=== PATIENT | female | born 1950 | race Hispanic/Latino ===

== ENCOUNTER 2017-12-12 09:34 | Emergency (ER) | payer MEDICARE ==
[~2017-12-12 09:34] MED LIST: AMLO10TA2 PO; CLOP75TA32 PO; FURO40TA5 PO; GLIP1TAB6 PO; INHALER IH; LISI40TA4 PO; METO50TA18 PO; SIMV40TA5 PO; SITA100T12 PO
[2017-12-12] MEDS ORDERED: ACETAMINOPHEN 325 MG TAB ONE (10:38)
[2018-04-09] MEDS ORDERED: PANT40TA25 PO (23:19)
== END 2017-12-12 11:47 | disposition home or self-care (01) ==
LOC: EDH 09:34
DX: S82.854A Nondisplaced trimalleolar fracture of right lower leg, initial encounter for closed fracture (principal); E78.5 Hyperlipidemia, unspecified; I10 Essential (primary) hypertension; E11.9 Type 2 diabetes mellitus without complications; Z88.6 Allergy status to analgesic agent; W10.8XXA Fall (on) (from) other stairs and steps, initial encounter; Y93.89 Activity, other specified; Y92.098 Other place in other non-institutional residence as the place of occurrence of the external cause; Y99.8 Other external cause status
CPT/HCPCS: 29515; 73610

== ENCOUNTER 2017-12-20 12:45 | Inpatient (IN) | payer MEDICARE ==
[~2017-12-20] VITALS: Ht 162.6 cm; Wt 59.0 kg
[~2017-12-20 12:45] MED LIST changes: -FURO40TA5 PO
[2017-12-20 14:23] VITALS: BP 149/64
[2017-12-20] MEDS ORDERED: ASPI-555 PO (14:48)
[2017-12-20 14:54] LABS: APPEARANCE,URINE Clear (CLEAR); BILIRUBIN,URINE Negative (NEGATIVE); COLOR,URINE Yellow (YELLOW); GLUCOSE, URINE (UA) Negative (NEGATIVE); KETONES,URINE Negative (NEGATIVE); LEUKOCYTE ESTERASE ,URINE Moderate (NEGATIVE); NITRATE,URINE Positive (NEGATIVE); OCCULT BLOOD,URINE Trace (NEGATIVE); PROTEIN,URINE POS 2+ (NEGATIVE); UROBILINOGEN,URINE 0.2 mg/dL (0.2-1.0)
[2017-12-20 15:01] LABS: BACTERIA,URINE Many /HPF (None Seen); RBC,URINE None Seen /HPF (0-1)
[2017-12-21] VITALS (24 sets, daily range): BP systolic 148–192; BP diastolic 58–86
[2017-12-21] MEDS ORDERED: GENTAMICIN SULFATE 80 MG/2 ML VIAL IM SCH (06:30)
[2017-12-21] MEDS ORDERED: SODIUM CHLORIDE 0.9% 1000ML 1,000 ML IV ONE (06:55)
[2017-12-21] MEDS: CEFAZOLIN SODIUM 1 GM VIAL IVP SCH ×4 (07:30→21:19)
[2017-12-21] MEDS ORDERED: GENTAMICIN SULFATE 80 MG/2 ML VIAL ONE (07:30)
[2017-12-21] MEDS ORDERED: MIDAZOLAM HCL 1 MG/ML 2ML VIAL ONE (07:37)
[2017-12-21] MEDS ORDERED: FENTANYL CITRATE PF 50 MCG/1 ML 5ML AMP IV ONE (09:02)
[2017-12-21] MEDS ORDERED: ONDANSETRON HCL MDV 20ML 2 MG/ML VIAL ONE (10:10)
[2017-12-21 10:45] LABS: HEMATOCRIT 28.3 % (36-48)
[2017-12-21] MEDS ORDERED: MORPHINE SULFATE 10 MG/ML 1ML SYG IM PRN ×2 (11:30→11:45)
[2017-12-21] MEDS ORDERED: PROMETHAZINE HCL 25 MG/ML 1ML AMPULE IM PRN (11:30)
[2017-12-21] MEDS ORDERED: BISACODYL 10 MG SUPP.RECT RC PRN (11:30)
[2017-12-21] MEDS ORDERED: LACTATED RINGERS 1000ML 1,000 ML IV SCH (11:30)
[2017-12-21] MEDS ORDERED: MAGNESIUM HYDROXIDE 30 ML/UDCUP PO PRN (11:30)
[2017-12-21] MEDS ORDERED: HYDROCODONE/ACETAMINOPHEN 5/325 MG TAB PO PRN (11:45)
[2017-12-21] MEDS ORDERED: ONDANSETRON HCL 4 MG/2 ML VIAL IVP PRN (12:00)
[2017-12-21] MEDS: MORPHINE SULFATE 2 MG/ML 1ML SYG IVP PRN ×2 (12:04→17:29)
[2017-12-21] MEDS ORDERED: GENTAMICIN 80 MG/NS 100 ML PB 100 ML IV SCH (16:00)
[2017-12-21 18:23] LABS: HEMATOCRIT 27.1 % (36-48)
[2017-12-21] MEDS ORDERED: ONDANSETRON HCL MDV 20ML 2 MG/ML VIAL IVP PRN (19:30)
[2017-12-21] MEDS ORDERED: KETOROLAC TROMETHAMINE 30MG/ML ONE (19:44)
[2017-12-21] MEDS ORDERED: DEXTROSE 50%-WATER 50 ML DISP.SYRIN IV PRN (20:15)
[2017-12-21] MEDS ORDERED: GLUCAGON 1MG KIT 1 MG ML IM PRN (20:15)
[2017-12-21] MEDS: INSULIN R PO SS1 SQ SCH (21:16)
[2017-12-22] VITALS: BP 145/70
[2017-12-22 00:23] LABS: HEMATOCRIT 26.5 % (36-48)
[2017-12-22] MEDS: KETOROLAC TROMETHAMINE 30MG/ML IV PRN ×4 (02:03→23:31)
[2017-12-22 04:00] VITALS: BP 149/63
[2017-12-22] MEDS: CEFAZOLIN SODIUM 1 GM VIAL IVP SCH (05:46)
[2017-12-22 06:36] LABS: MAGNESIUM 1.5 mg/dL (1.80-2.40); POTASSIUM 4.1 mmol/L (3.5-5.1)
[2017-12-22] MEDS: INSULIN R PO SS1 SQ SCH ×4 (07:05→20:50)
[2017-12-22] MEDS ORDERED: METFORMIN HCL 500 MG TABLET PO SCH (07:30)
[2017-12-22 08:26] VITALS: BP 164/65
[2017-12-22] MEDS: GLIPIZIDE 5 MG TABLET PO SCH ×2 (08:49→17:09)
[2017-12-22] MEDS: ASPIRIN 81 MG EC TAB PO SCH (08:49)
[2017-12-22] MEDS: LISINOPRIL 40 MG TABLET PO SCH (08:49)
[2017-12-22] MEDS: CLOPIDOGREL BISULFATE 75 MG TAB PO SCH (08:50)
[2017-12-22] MEDS: AMLODIPINE BESYLATE 5 MG TAB PO SCH ×2 (08:50→09:04)
[2017-12-22] MEDS: LINAGLIPTIN 5 MG TABLET PO SCH (08:50)
[2017-12-22] MEDS: RIVAROXABAN 10 MG TABLET PO SCH (08:50)
[2017-12-22] MEDS: METOPROLOL TARTRATE 50 MG TAB PO SCH ×2 (08:50→20:44)
[2017-12-22] MEDS: METFORMIN HCL 500 MG TABLET PO SCH ×2 (08:50→17:09)
[2017-12-22 11:07] LABS: HEMATOCRIT 30.7 % (36-48); MEAN CORPUSCULAR HEMOGLOBIN 27.5 pg (27.0-33.0); MEAN CORPUSCULAR HGB CONC 34.6 g/dL (32.0-36.0); MEAN CORPUSCULAR VOLUME 79.6 fL (79-99); RED BLOOD CELL COUNT(AUTO) 3.86 MIL/uL (4.00-5.50); RED CELL DISTRIBUTION WIDTH 14.1 % (11.0-15.5); WHITE BLOOD COUNT (AUTO) 10.3 K/uL (4.8-10.8)
[2017-12-22 11:08] LABS: BASOPHILS % (AUTO) 0.4 % (0.0-5.0); EOSINOPHILS % (AUTO) 0.9 % (0.0-8.0); LYMPHOCYTES % (AUTO) 14.8 % (21.0-51.0); MONOCYTES % (AUTO) 12.4 % (3.0-13.0); NEUTROPHILS % (AUTO) 71.5 % (40.0-77.0); PLATELET COUNT (AUTO) 246 K/uL (130-400)
[2017-12-22 12:00] VITALS: BP 140/62
[2017-12-22 16:00] VITALS: BP 163/72
[2017-12-22 19:52] VITALS: BP 154/60
[2017-12-22] MEDS ORDERED: ATORVASTATIN CALCIUM 20 MG TABLET PO SCH (21:00)
[2017-12-23 00:29] VITALS: BP 151/67
[2017-12-23 04:26] VITALS: BP 164/64
[2017-12-23] MEDS: INSULIN R PO SS1 SQ SCH ×3 (05:57→16:17)
[2017-12-23] MEDS ORDERED: CEFTRIAXONE 1GM/D5W 50ML 50 ML IV SCH (07:30)
[2017-12-23] MEDS ORDERED: MAGNESIUM 4GM PREMIX 100ML 100 ML IV SCH (07:30)
[2017-12-23 07:45] VITALS: BP 157/62
[2017-12-23] MEDS ORDERED: CEFTRIAXONE SODIUM 1 GM IVP SCH (08:00)
[2017-12-23] MEDS: KETOROLAC TROMETHAMINE 30MG/ML IV PRN (10:12)
[2017-12-23] MEDS: METFORMIN HCL 500 MG TABLET PO SCH ×2 (10:20→16:24)
[2017-12-23] MEDS: GLIPIZIDE 5 MG TABLET PO SCH ×2 (10:20→16:24)
[2017-12-23] MEDS: ASPIRIN 81 MG EC TAB PO SCH (10:21)
[2017-12-23] MEDS: CLOPIDOGREL BISULFATE 75 MG TAB PO SCH (10:21)
[2017-12-23] MEDS: LINAGLIPTIN 5 MG TABLET PO SCH (10:21)
[2017-12-23] MEDS: RIVAROXABAN 10 MG TABLET PO SCH (10:21)
[2017-12-23] MEDS: METOPROLOL TARTRATE 50 MG TAB PO SCH (10:22)
[2017-12-23] MEDS: LISINOPRIL 40 MG TABLET PO SCH (10:37)
[2017-12-23] MEDS: AMLODIPINE BESYLATE 5 MG TAB PO SCH (10:37)
[2017-12-23 12:00] VITALS: BP 156/58
[2018-04-09] MEDS ORDERED: PANT40TA25 PO (23:19)
== END 2017-12-23 17:34 | disposition home or self-care (01) | DRG 493 ==
LOC: EDSTATUS 12:45 → DAHIP 12-21 06:38 → 4AH 12-21 10:40
PROC: 0QSG04Z Reposition Right Tibia with Internal Fixation Device, Open Approach (ICD-10-PCS; 2017-12-21)
PROC: 30233N1 Transfusion of Nonautologous Red Blood Cells into Peripheral Vein, Percutaneous Approach (ICD-10-PCS; 2017-12-21)
PROC: 0QSJ04Z Reposition Right Fibula with Internal Fixation Device, Open Approach (ICD-10-PCS; principal; 2017-12-21 07:30)
DX: S82.851A Displaced trimalleolar fracture of right lower leg, initial encounter for closed fracture (principal); N39.0 Urinary tract infection, site not specified; E83.42 Hypomagnesemia; I11.9 Hypertensive heart disease without heart failure; I65.23 Occlusion and stenosis of bilateral carotid arteries; D63.8 Anemia in other chronic diseases classified elsewhere; E11.9 Type 2 diabetes mellitus without complications; E78.00 Pure hypercholesterolemia, unspecified; S93.01XA Subluxation of right ankle joint, initial encounter; H91.90 Unspecified hearing loss, unspecified ear; I25.10 Atherosclerotic heart disease of native coronary artery without angina pectoris; J45.909 Unspecified asthma, uncomplicated; Z79.01 Long term (current) use of anticoagulants
CPT/HCPCS: 36415; 36430; 73610; 76000; 80048; 81001; 82948; 83735; 85014; 85018; 85025; 86850; 86900; 86901; 86922; 94760; 97039; A4218; A4606; J0690; J0696; J1580; J1815; J1885; J2250; J3010; J3475; J7030; J7120; P9016

== ENCOUNTER 2018-02-02 10:00 | Inpatient (IN) | payer MEDICARE ==
[~2018-02-02] VITALS: Ht 162.6 cm; Wt 59.0 kg
[~2018-02-02 10:00] MED LIST changes: +ASPI-555 PO; -INHALER IH
[2018-02-05 12:47] VITALS: BP 155/66
[2018-02-05 13:42] LABS: BASOPHILS % (AUTO) 0.9 % (0.0-5.0); HEMATOCRIT 35.5 % (36-48); LYMPHOCYTES % (AUTO) 24.1 % (21.0-51.0); MEAN CORPUSCULAR HEMOGLOBIN 26.3 pg (27.0-33.0); MEAN CORPUSCULAR HGB CONC 33.5 g/dL (32.0-36.0); MEAN CORPUSCULAR VOLUME 78.5 fL (79-99); MONOCYTES % (AUTO) 7.1 % (3.0-13.0); NEUTROPHILS % (AUTO) 62.9 % (40.0-77.0); PLATELET COUNT (AUTO) 245 K/uL (130-400); RED BLOOD CELL COUNT(AUTO) 4.52 MIL/uL (4.00-5.50); WHITE BLOOD COUNT (AUTO) 8.4 K/uL (4.8-10.8)
[2018-02-05 13:59] LABS: CREATININE 0.9 mg/dL (0.5-1.5); POTASSIUM 4.9 mmol/L (3.5-5.1)
[2018-02-05] MEDS ORDERED: CEFAZOLIN SODIUM 1 GM VIAL IVP SCH (15:30)
[2018-02-07] VITALS (18 sets, daily range): BP systolic 100–159; BP diastolic 34–82
[2018-02-07] MEDS ORDERED: SODIUM CHLORIDE 0.9% 1000ML 1,000 ML IV ONE (06:36)
[2018-02-07] MEDS ORDERED: GLYCOPYRROLATE 0.2 MG/ML 5 ML VIAL ONE (07:07)
[2018-02-07] MEDS ORDERED: LIDOCAINE HCL MPF 1% 5ML VIAL ONE (07:07)
[2018-02-07] MEDS ORDERED: ESMOLOL HCL 10 MG/ML 10 ML VIAL ONE (07:07)
[2018-02-07] MEDS ORDERED: NEOSTIGMINE 5MG/5ML SYR IV ONE (07:07)
[2018-02-07] MEDS ORDERED: ROCURONIUM BROMIDE 10MG/1ML 5ML VL ONE ×3 (07:07→07:10)
[2018-02-07] MEDS ORDERED: LIDOCAINE PF 2% 5ML ABBOJECT ONE (07:07)
[2018-02-07] MEDS ORDERED: ONDANSETRON HCL MDV 20ML 2 MG/ML VIAL ONE (07:07)
[2018-02-07] MEDS ORDERED: PHENYLEPHRINE HCL 10 MG/ML 1ML VIAL IV ONE (07:07)
[2018-02-07] MEDS ORDERED: MIDAZOLAM HCL 1 MG/ML 2ML VIAL ONE (07:07)
[2018-02-07] MEDS ORDERED: LIDOCAINE HCL 2% JELLY 5 ML ONE (07:07)
[2018-02-07] MEDS ORDERED: EPHEDRINE SULFATE 50 MG/ML AMPULE ONE (07:07)
[2018-02-07] MEDS ORDERED: PROPOFOL 10 MG/ML 20ML VIAL IV ONE ×2 (07:08→08:36)
[2018-02-07] MEDS ORDERED: FENTANYL CITRATE PF 50 MCG/1 ML 2ML VIAL ONE ×2 (07:08→08:31)
[2018-02-07] MEDS ORDERED: SODIUM CHLORIDE 0.9% 10 ML VIAL ONE (07:09)
[2018-02-07] MEDS ORDERED: HEPARIN SODIUM 1000UNIT/ML 10ML VIAL ONE ×2 (07:09→07:10)
[2018-02-07] MEDS ORDERED: ISOVUE-300 100 ML VIAL IV ONE (07:10)
[2018-02-07] MEDS ORDERED: NITROGLYCERIN 5 MG/ML 10 ML VIAL IV ONE (07:10)
[2018-02-07 07:16] LABS: INR 0.93 (0.85-1.15); PARTIAL THROMBOPLASTIN TIME 26.4 SEC (26.3-35.5); PROTHROMBIN TIME 9.8 SEC (9.6-11.6)
[2018-02-07] MEDS ORDERED: CEFAZOLIN SODIUM 1 GM VIAL ONE (07:19)
[2018-02-07] MEDS ORDERED: LIDOCAINE HCL 1% 20 ML VIAL ONE (07:32)
[2018-02-07] MEDS ORDERED: BACITRACIN 50,000 UNIT VIAL ONE (07:32)
[2018-02-07] MEDS ORDERED: DEXTROSE 50%-WATER 50 ML DISP.SYRIN IV PRN (09:30)
[2018-02-07] MEDS ORDERED: GLUCAGON 1MG KIT 1 MG ML IM PRN (09:30)
[2018-02-07] MEDS ORDERED: HYDRALAZINE HCL 20 MG/ML VIAL ONE (09:42)
[2018-02-07] MEDS: SODIUM CHLORIDE 0.9% 1000ML 1,000 ML IV SCH ×2 (10:27→21:43)
[2018-02-07] MEDS: NITROGLYCERIN 1GM/1 INCH PACKET TD SCH ×2 (10:27→18:22)
[2018-02-07] MEDS: HYDRALAZINE HCL 20 MG/ML VIAL IV PRN (10:39)
[2018-02-07] MEDS: INSULIN HUMULIN R 100 UNIT/ML 3ML SQ SCH ×3 (12:38→21:00)
[2018-02-07] MEDS: MORPHINE SULFATE 4 MG/1ML SYG IVP PRN ×2 (12:39→17:10)
[2018-02-07] MEDS: TRAMADOL /APAP 37.5MG/325MG TAB PO PRN ×2 (14:29→23:30)
[2018-02-07] MEDS ORDERED: ONDANSETRON HCL 4 MG/2 ML VIAL ONE (19:17)
[2018-02-07] MEDS: METOPROLOL TARTRATE 50 MG TAB PO SCH (20:37)
[2018-02-07] MEDS ORDERED: ATORVASTATIN CALCIUM 20 MG TABLET PO SCH (21:00)
[2018-02-08] VITALS (12 sets, daily range): BP systolic 111–176; BP diastolic 38–91
[2018-02-08] MEDS: NITROGLYCERIN 1GM/1 INCH PACKET TD SCH ×2 (02:11→10:00)
[2018-02-08] MEDS: HYDRALAZINE HCL 20 MG/ML VIAL IV PRN (02:12)
[2018-02-08 03:56] LABS: HEMATOCRIT 27.4 % (36-48); MEAN CORPUSCULAR HEMOGLOBIN 26.9 pg (27.0-33.0); MEAN CORPUSCULAR VOLUME 79.3 fL (79-99); PLATELET COUNT (AUTO) 196 K/uL (130-400); RED BLOOD CELL COUNT(AUTO) 3.46 MIL/uL (4.00-5.50); RED CELL DISTRIBUTION WIDTH 15.1 % (11.0-15.5); WHITE BLOOD COUNT (AUTO) 9.5 K/uL (4.8-10.8)
[2018-02-08 04:08] LABS: CREATININE 0.9 mg/dL (0.5-1.5); POTASSIUM 3.9 mmol/L (3.5-5.1)
[2018-02-08] MEDS: INSULIN HUMULIN R 100 UNIT/ML 3ML SQ SCH ×2 (05:46→11:49)
[2018-02-08] MEDS ORDERED: ONDANSETRON HCL 4 MG/2 ML VIAL ONE (06:29)
[2018-02-08] MEDS ORDERED: ONDANSETRON HCL MDV 20ML 2 MG/ML VIAL IVP PRN (06:30)
[2018-02-08] MEDS: METOPROLOL TARTRATE 50 MG TAB PO SCH (08:59)
[2018-02-08] MEDS ORDERED: AMLODIPINE BESYLATE 5 MG TAB PO SCH (09:00)
[2018-02-08] MEDS ORDERED: ASPIRIN 81 MG EC TAB PO SCH (09:00)
[2018-02-08] MEDS ORDERED: LISINOPRIL 40 MG TABLET PO SCH (09:00)
[2018-02-08] MEDS ORDERED: CLOPIDOGREL BISULFATE 75 MG TAB PO SCH (09:00)
[2018-02-08] MEDS ORDERED: IBUP-2070 PO (12:42)
[2018-02-08] MEDS ORDERED: ACET-2247 PO (12:44)
[2018-04-09] MEDS ORDERED: PANT40TA25 PO (23:19)
== END 2018-02-08 14:22 | disposition home or self-care (01) | DRG 39 ==
LOC: EDSTATUS 02-05 11:00 → DAHIP 02-07 06:13 → 2CV 02-07 10:11 → 2CH 02-07 16:57
PROVIDERS: ADMIT Surgery; ATTEND Surgery
PROC: 037J0DZ Dilation of Left Common Carotid Artery with Intraluminal Device, Open Approach (ICD-10-PCS; principal; 2018-02-07 07:30)
DX: I65.23 Occlusion and stenosis of bilateral carotid arteries (principal); I11.0 Hypertensive heart disease with heart failure; E11.9 Type 2 diabetes mellitus without complications; E78.00 Pure hypercholesterolemia, unspecified; Z88.8 Allergy status to other drugs, medicaments and biological substances; Z82.49 Family history of ischemic heart disease and other diseases of the circulatory system
CPT/HCPCS: 36415; 37215; 80048; 82948; 85025; 85027; 85347; 85610; 85730; 93005; 93880; A4218; C1725; C1894; J0360; J0690; J1644; J1815; J2001; J2250; J2270; J2370; J2405; J2704; J2710; J3010; J3490; J7030; J7040; Q9967

== ENCOUNTER 2018-02-21 06:39 | Emergency (ER) | payer MEDICARE ==
[~2018-02-21 06:39] MED LIST changes: +ACET-2247 PO; +IBUP-2070 PO
[2018-02-21 07:17] LABS: BASOPHILS % (AUTO) 0.5 % (0.0-5.0); EOSINOPHILS % (AUTO) 1.1 % (0.0-8.0); HEMATOCRIT 33.7 % (36-48); LYMPHOCYTES % (AUTO) 8.6 % (21.0-51.0); MEAN CORPUSCULAR HEMOGLOBIN 26.1 pg (27.0-33.0); MEAN CORPUSCULAR HGB CONC 32.8 g/dL (32.0-36.0); MEAN CORPUSCULAR VOLUME 79.7 fL (79-99); MONOCYTES % (AUTO) 0.3 % (3.0-13.0); NEUTROPHILS % (AUTO) 89.5 % (40.0-77.0); PLATELET COUNT (AUTO) 280 K/uL (130-400); RED BLOOD CELL COUNT(AUTO) 4.23 MIL/uL (4.00-5.50); RED CELL DISTRIBUTION WIDTH 15.2 % (11.0-15.5); WHITE BLOOD COUNT (AUTO) 6.5 K/uL (4.8-10.8)
[2018-02-21 07:25] LABS: CREATININE 1.3 mg/dL (0.5-1.5); POTASSIUM 4.2 mmol/L (3.5-5.1)
[2018-02-21 07:31] LABS: ALBUMIN 3.4 g/dL (3.5-5.0); BILIRUBIN,TOTAL 0.7 mg/dL (0.2-1.0); TOTAL PROTEIN, SERUM 7.5 g/dL (6.0-8.3)
[2018-02-21 07:35] LABS: APPEARANCE,URINE TURBID (CLEAR); BILIRUBIN,URINE NEGATIVE (NEGATIVE); COLOR,URINE YELLOW (YELLOW); GLUCOSE, URINE (UA) 100 mg/dL (NEGATIVE); KETONES,URINE 15 mg/dL (NEGATIVE); LEUKOCYTE ESTERASE ,URINE SMALL (NEGATIVE); NITRATE,URINE POSITIVE (NEGATIVE); OCCULT BLOOD,URINE LARGE (NEGATIVE); PROTEIN,URINE 100 (NEGATIVE)
[2018-02-21] MEDS ORDERED: KETOROLAC TROMETHAMINE 30MG/ML ONE (07:37)
[2018-02-21] MEDS ORDERED: ONDANSETRON HCL MDV 20ML 2 MG/ML VIAL ONE (07:37)
[2018-02-21] MEDS ORDERED: SODIUM CHLORIDE 0.9% 1000ML 1,000 ML IV ONE (07:37)
[2018-02-21 07:47] LABS: BACTERIA,URINE Many /HPF (None Seen); RBC,URINE TNTC /HPF (0-1); SQUAMOUS EPITHELIAL CELL,UR Rare /HPF (0-2); WBC,URINE 26-50 /HPF (0-1)
[2018-02-21] MEDS ORDERED: CEFTRIAXONE SODIUM 1 GM ONE (09:13)
[2018-02-21] MEDS ORDERED: SODIUM CHLORIDE 0.9% 100 ML IV ONE (09:14)
[2018-04-09] MEDS ORDERED: PANT40TA25 PO (23:19)
== END 2018-02-21 12:24 | disposition home or self-care (01) ==
LOC: EDH 06:39
DX: N39.0 Urinary tract infection, site not specified (principal); E11.9 Type 2 diabetes mellitus without complications; E78.5 Hyperlipidemia, unspecified; I10 Essential (primary) hypertension; Z88.5 Allergy status to narcotic agent
CPT/HCPCS: 36415; 74176; 80053; 81001; 85025; 87088; 87186; 96361; 96374; 96375; 99285; J0696; J1885; J7030

== ENCOUNTER 2018-02-23 08:14 | Inpatient (IN) | payer MEDICARE ==
[~2018-02-23] VITALS: Ht 162.6 cm; Wt 55.4 kg
[2018-02-23] MEDS ORDERED: SODIUM CHLORIDE 0.9% 1000ML 1,000 ML IV ONE ×2 (08:38→17:06)
[2018-02-23] MEDS ORDERED: ONDANSETRON HCL MDV 20ML 2 MG/ML VIAL ONE ×3 (08:38→21:52)
[2018-02-23 08:46] LABS: BASOPHILS % (AUTO) 0.2 % (0.0-5.0); EOSINOPHILS % (AUTO) 0.2 % (0.0-8.0); HEMATOCRIT 31.6 % (36-48); MEAN CORPUSCULAR HEMOGLOBIN 25.6 pg (27.0-33.0); MEAN CORPUSCULAR HGB CONC 32.8 g/dL (32.0-36.0); MEAN CORPUSCULAR VOLUME 78.2 fL (79-99); NEUTROPHILS % (AUTO) 90.6 % (40.0-77.0); PLATELET COUNT (AUTO) 252 K/uL (130-400); RED BLOOD CELL COUNT(AUTO) 4.05 MIL/uL (4.00-5.50); RED CELL DISTRIBUTION WIDTH 15.6 % (11.0-15.5); WHITE BLOOD COUNT (AUTO) 17.1 K/uL (4.8-10.8)
[2018-02-23 08:58] LABS: APPEARANCE,URINE Cloudy (CLEAR); BILIRUBIN,URINE Negative (NEGATIVE); COLOR,URINE Yellow (YELLOW); GLUCOSE, URINE (UA) 500 mg/dL (NEGATIVE); KETONES,URINE >=80 mg/dL (NEGATIVE); LEUKOCYTE ESTERASE ,URINE Negative (NEGATIVE); NITRATE,URINE Negative (NEGATIVE); OCCULT BLOOD,URINE Moderate (NEGATIVE); PROTEIN,URINE POS 2+ (NEGATIVE); UROBILINOGEN,URINE 0.2 mg/dL (0.2-1.0)
[2018-02-23 09:02] LABS: CREATININE 1.6 mg/dL (0.5-1.5); POTASSIUM 3.3 mmol/L (3.5-5.1)
[2018-02-23 09:05] LABS: AMORPHOUS SEDIMENT,UR Moderate /LPF (None Seen); BACTERIA,URINE Rare /HPF (None Seen); SQUAMOUS EPITHELIAL CELL,UR Rare /HPF (0-2); WBC,URINE 0-1 /HPF (0-1)
[2018-02-23 09:08] LABS: ALBUMIN 3.3 g/dL (3.5-5.0); BILIRUBIN,DIRECT 0.2 mg/dL (0.0-0.3); BILIRUBIN,TOTAL 0.8 mg/dL (0.2-1.0); TOTAL PROTEIN, SERUM 7.7 g/dL (6.0-8.3)
[2018-02-23] MEDS ORDERED: LABETALOL HCL 5 MG/ML 20ML VIAL IV ONE ×3 (09:20→16:42)
[2018-02-23] MEDS ORDERED: HYDROMORPHONE HCL 0.5 MG/0.5 ML ML IVP PRN (16:30)
[2018-02-23] MEDS ORDERED: VANCOMYCIN PROTOCOL PER PHARMACY IV SCH (16:30)
[2018-02-23] MEDS: SODIUM CHLORIDE 0.9% 1000ML 1,000 ML IV SCH (16:30)
[2018-02-23] MEDS ORDERED: ONDANSETRON HCL 4 MG/2 ML VIAL IVP PRN (16:30)
[2018-02-23] MEDS: VANCOMYCIN 1GM+NS 250ML 250 ML IV SCH (17:00)
[2018-02-23] MEDS: FAMOTIDINE/PF 20 MG/2 ML VIAL IV SCH (17:00)
[2018-02-23] MEDS ORDERED: FAMOTIDINE/PF 20 MG/2 ML VIAL IV ONE (17:06)
[2018-02-23] MEDS ORDERED: ZOSYN 3.375GM+NS 50ML 50 ML IV ONE (17:06)
[2018-02-23] MEDS ORDERED: HYDROMORPHONE 1 MG/1 ML AMP ONE (18:40)
[2018-02-23] MEDS: ZOSYN 3.375GM+NS 50ML 50 ML IV SCH (21:00)
[2018-02-23] MEDS ORDERED: VANCOMYCIN 1GM+NS 250ML 250 ML IV ONE (21:44)
[2018-02-23 22:15] VITALS: BP 204/68
[2018-02-23] MEDS ORDERED: POTASSIUM CHLORIDE 20MEQ/100ML 100 ML IV PRN (23:45)
[2018-02-23] MEDS ORDERED: GLUCAGON 1MG KIT 1 MG ML IM PRN (23:45)
[2018-02-23] MEDS ORDERED: LIDOCAINE HCL-MPF 1% 2ML VIAL IVP PRN (23:45)
[2018-02-23] MEDS ORDERED: POTASSIUM CHLORIDE 20 MEQ ERTAB PO PRN ×2 (23:45)
[2018-02-23] MEDS ORDERED: POTASSIUM CHLORIDE 10% ELIXIR 20 MEQ/15 ML UDCUP PO PRN ×2 (23:45)
[2018-02-23] MEDS ORDERED: DEXTROSE 50%-WATER 50 ML DISP.SYRIN IV PRN (23:45)
[2018-02-23 23:47] VITALS: BP 202/75
[2018-02-24] VITALS (16 sets, daily range): BP systolic 145–213; BP diastolic 59–98
[2018-02-24] MEDS: SODIUM CHLORIDE 0.9% 1000ML 1,000 ML IV SCH ×4 (00:11→22:31)
[2018-02-24] MEDS: LABETALOL HCL 5 MG/ML 20ML VIAL IV PRN ×3 (00:18→14:53)
[2018-02-24] MEDS ORDERED: CEFD300C3 PO (01:33)
[2018-02-24] MEDS ORDERED: FURO40TA5 PO (01:33)
[2018-02-24] MEDS ORDERED: NITR100C PO (01:33)
[2018-02-24] MEDS ORDERED: ONDA4TAB10 PO (01:33)
[2018-02-24] MEDS ORDERED: TRAM50TA4 PO (01:33)
[2018-02-24] MEDS ORDERED: BENZ200C53 PO (01:33)
[2018-02-24] MEDS ORDERED: ONDANSETRON ODT 4 MG TAB PO PRN (01:45)
[2018-02-24] MEDS ORDERED: TRAMADOL HCL 50 MG TABLET PO PRN (01:45)
[2018-02-24] MEDS: HYDROMORPHONE 1 MG/1 ML AMP IVP PRN ×2 (03:14→09:14)
[2018-02-24] MEDS: ZOSYN 3.375GM+NS 50ML 50 ML IV SCH ×3 (05:30→21:01)
[2018-02-24] MEDS: GLIPIZIDE 5 MG TABLET PO SCH ×2 (07:30→17:48)
[2018-02-24] MEDS: METFORMIN HCL 500 MG TABLET PO SCH ×2 (07:30→17:48)
[2018-02-24] MEDS ORDERED: PNEUMOCOCCAL VACCINE POLYVALENT 0.5 ML/VIAL [PPV] IM SCH (08:00)
[2018-02-24 08:29] LABS: HEMATOCRIT 27.3 % (36-48); MEAN CORPUSCULAR HEMOGLOBIN 26.5 pg (27.0-33.0); MEAN CORPUSCULAR HGB CONC 33.3 g/dL (32.0-36.0); MEAN CORPUSCULAR VOLUME 79.6 fL (79-99); PLATELET COUNT (AUTO) 219 K/uL (130-400); RED BLOOD CELL COUNT(AUTO) 3.43 MIL/uL (4.00-5.50); RED CELL DISTRIBUTION WIDTH 15.7 % (11.0-15.5)
[2018-02-24] MEDS: LINAGLIPTIN 5 MG TABLET PO SCH (09:00)
[2018-02-24] MEDS: AMLODIPINE BESYLATE 5 MG TAB PO SCH (09:00)
[2018-02-24] MEDS ORDERED: FUROSEMIDE 40 MG TABLET PO SCH (09:00)
[2018-02-24] MEDS: BENZONATATE 100 MG CAPSULE PO SCH ×3 (09:00→21:01)
[2018-02-24] MEDS ORDERED: METOPROLOL TARTRATE 50 MG TAB PO SCH (09:00)
[2018-02-24] MEDS ORDERED: CLOPIDOGREL BISULFATE 75 MG TAB PO SCH (09:00)
[2018-02-24] MEDS: NITROFURANTOIN MONOHYD/M-CRYST 100 MG CAPSULE PO SCH ×2 (09:00→21:01)
[2018-02-24 09:03] LABS: ALBUMIN 2.6 g/dL (3.5-5.0); BILIRUBIN,TOTAL 0.5 mg/dL (0.2-1.0); CREATININE 1.3 mg/dL (0.5-1.5); MAGNESIUM 1.5 mg/dL (1.80-2.40); POTASSIUM 3.5 mmol/L (3.5-5.1); TOTAL PROTEIN, SERUM 6.5 g/dL (6.0-8.3)
[2018-02-24] MEDS: LISINOPRIL 40 MG TABLET PO SCH (10:39)
[2018-02-24] MEDS ORDERED: CLONIDINE 0.3 MG/ 24 HR PATCH TD SCH (11:00)
[2018-02-24] MEDS ORDERED: LABETALOL 20 MG/4 ML DISP.SYRIN IV PRN (11:00)
[2018-02-24] MEDS: INSULIN HUMULIN R 100 UNIT/ML 3ML SQ SCH ×4 (11:18→21:00)
[2018-02-24] MEDS: CEFDINIR 250MG/5ML 60ML BOTTLE PO SCH ×2 (11:19→21:01)
[2018-02-24 11:34] LABS: CREATINE KINASE MB 0.9 ng/mL (0.5-3.6); TROPONIN I 0.06 ng/mL (0.00-0.06)
[2018-02-24] MEDS: FUROSEMIDE 10 MG/ML 2ML VIAL IV SCH (17:43)
[2018-02-24] MEDS: ONDANSETRON HCL MDV 20ML 2 MG/ML VIAL IVP PRN (17:47)
[2018-02-24] MEDS: VANCOMYCIN 1GM+NS 250ML 250 ML IV SCH (17:47)
[2018-02-24] MEDS: FAMOTIDINE/PF 20 MG/2 ML VIAL IV SCH (17:47)
[2018-02-24] MEDS: LABETALOL HCL 100 MG TABLET PO SCH ×2 (17:48→21:02)
[2018-02-24 18:11] LABS: CREATINE KINASE MB 0.9 ng/mL (0.5-3.6); TROPONIN I 0.08 ng/mL (0.00-0.06)
[2018-02-24] MEDS: ATORVASTATIN CALCIUM 20 MG TABLET PO SCH (21:01)
[2018-02-24 23:31] LABS: TROPONIN I 0.08 ng/mL (0.00-0.06)
[2018-02-25] VITALS (10 sets, daily range): BP systolic 125–211; BP diastolic 66–102
[2018-02-25] MEDS: ONDANSETRON HCL MDV 20ML 2 MG/ML VIAL IVP PRN ×2 (00:03→05:58)
[2018-02-25] MEDS: LABETALOL HCL 5 MG/ML 20ML VIAL IV PRN ×2 (00:26→08:48)
[2018-02-25] MEDS: SODIUM CHLORIDE 0.9% 1000ML 1,000 ML IV SCH ×4 (01:39→22:32)
[2018-02-25] MEDS: HYDROMORPHONE 1 MG/1 ML AMP IVP PRN (02:29)
[2018-02-25] MEDS: ZOSYN 3.375GM+NS 50ML 50 ML IV SCH ×3 (04:15→22:14)
[2018-02-25] MEDS: FUROSEMIDE 10 MG/ML 2ML VIAL IV SCH (04:15)
[2018-02-25 05:59] LABS: HEMATOCRIT 26.1 % (36-48); MEAN CORPUSCULAR HEMOGLOBIN 26.3 pg (27.0-33.0); MEAN CORPUSCULAR HGB CONC 33.6 g/dL (32.0-36.0); MEAN CORPUSCULAR VOLUME 78.3 fL (79-99); PLATELET COUNT (AUTO) 250 K/uL (130-400); RED BLOOD CELL COUNT(AUTO) 3.34 MIL/uL (4.00-5.50); RED CELL DISTRIBUTION WIDTH 15.2 % (11.0-15.5); WHITE BLOOD COUNT (AUTO) 8.5 K/uL (4.8-10.8)
[2018-02-25] MEDS: INSULIN HUMULIN R 100 UNIT/ML 3ML SQ SCH ×4 (06:13→22:18)
[2018-02-25 06:26] LABS: ALBUMIN 2.4 g/dL (3.5-5.0); BILIRUBIN,TOTAL 0.5 mg/dL (0.2-1.0); CREATININE 1.1 mg/dL (0.5-1.5); MAGNESIUM 1.2 mg/dL (1.80-2.40); TOTAL PROTEIN, SERUM 5.8 g/dL (6.0-8.3)
[2018-02-25 06:28] LABS: POTASSIUM 2.1 mmol/L (3.5-5.1)
[2018-02-25] MEDS: POTASSIUM CHLORIDE 20MEQ/100ML 100 ML IV PRN ×4 (06:50→23:33)
[2018-02-25] MEDS ORDERED: MAGNESIUM 4GM PREMIX 100ML 100 ML IV SCH (07:15)
[2018-02-25] MEDS: METFORMIN HCL 500 MG TABLET PO SCH ×2 (07:30→16:35)
[2018-02-25] MEDS: GLIPIZIDE 5 MG TABLET PO SCH ×2 (07:30→16:35)
[2018-02-25] MEDS: LISINOPRIL 40 MG TABLET PO SCH (08:44)
[2018-02-25] MEDS: AMLODIPINE BESYLATE 5 MG TAB PO SCH (08:44)
[2018-02-25] MEDS: LABETALOL HCL 100 MG TABLET PO SCH (08:45)
[2018-02-25] MEDS: NITROFURANTOIN MONOHYD/M-CRYST 100 MG CAPSULE PO SCH ×2 (09:00→22:14)
[2018-02-25] MEDS: LINAGLIPTIN 5 MG TABLET PO SCH (09:00)
[2018-02-25] MEDS: BENZONATATE 100 MG CAPSULE PO SCH ×3 (09:00→22:14)
[2018-02-25] MEDS: CEFDINIR 250MG/5ML 60ML BOTTLE PO SCH ×2 (09:00→22:14)
[2018-02-25] MEDS ORDERED: DILTIAZEM HCL 5 MG/ML 10 ML VIAL IV SCH (09:45)
[2018-02-25] MEDS ORDERED: DILTIAZEM 125MG+100 ML NS 125 ML IV SCH (09:45)
[2018-02-25] MEDS ORDERED: LABETALOL HCL 100 MG TABLET PO SCH ×2 (10:45→21:00)
[2018-02-25] MEDS: LIDOCAINE HCL-MPF 1% 2ML VIAL IVP PRN ×2 (12:08→16:37)
[2018-02-25] MEDS: VANCOMYCIN 1GM+NS 250ML 250 ML IV SCH (16:34)
[2018-02-25] MEDS: FAMOTIDINE/PF 20 MG/2 ML VIAL IV SCH (16:35)
[2018-02-25] MEDS ORDERED: MAGNESIUM 2GM PREMIX 50ML 50 ML IV ONE (17:19)
[2018-02-25] MEDS: ATORVASTATIN CALCIUM 20 MG TABLET PO SCH (22:14)
[2018-02-25 23:12] LABS: MAGNESIUM 2.6 mg/dL (1.80-2.40)
[2018-02-25 23:13] LABS: POTASSIUM 2.3 mmol/L (3.5-5.1)
[2018-02-26] VITALS (12 sets, daily range): BP systolic 103–185; BP diastolic 47–116
[2018-02-26] MEDS: POTASSIUM CHLORIDE 20MEQ/100ML 100 ML IV PRN ×3 (00:55→11:10)
[2018-02-26] MEDS: ZOSYN 3.375GM+NS 50ML 50 ML IV SCH ×3 (04:12→20:34)
[2018-02-26] MEDS: LABETALOL HCL 5 MG/ML 20ML VIAL IV PRN (04:15)
[2018-02-26] MEDS: SODIUM CHLORIDE 0.9% 1000ML 1,000 ML IV SCH ×3 (04:32→17:24)
[2018-02-26 07:30] LABS: MAGNESIUM 2.1 mg/dL (1.80-2.40); POTASSIUM 3.5 mmol/L (3.5-5.1)
[2018-02-26] MEDS: GLIPIZIDE 5 MG TABLET PO SCH ×2 (07:30→16:13)
[2018-02-26] MEDS: INSULIN HUMULIN R 100 UNIT/ML 3ML SQ SCH ×2 (07:30→11:46)
[2018-02-26] MEDS: METFORMIN HCL 500 MG TABLET PO SCH ×2 (07:30→16:13)
[2018-02-26] MEDS ORDERED: METOPROLOL TARTRATE 1 MG/ML 5ML VIAL IV PRN (08:45)
[2018-02-26 08:51] LABS: HEMATOCRIT 29.1 % (36-48); MEAN CORPUSCULAR HEMOGLOBIN 26.3 pg (27.0-33.0); MEAN CORPUSCULAR HGB CONC 33.8 g/dL (32.0-36.0); MEAN CORPUSCULAR VOLUME 77.9 fL (79-99); PLATELET COUNT (AUTO) 271 K/uL (130-400); RED BLOOD CELL COUNT(AUTO) 3.73 MIL/uL (4.00-5.50); RED CELL DISTRIBUTION WIDTH 15.4 % (11.0-15.5)
[2018-02-26] MEDS: AMLODIPINE BESYLATE 5 MG TAB PO SCH (09:00)
[2018-02-26] MEDS: BENZONATATE 100 MG CAPSULE PO SCH ×3 (09:00→20:29)
[2018-02-26] MEDS: NITROFURANTOIN MONOHYD/M-CRYST 100 MG CAPSULE PO SCH ×2 (09:00→20:29)
[2018-02-26] MEDS: LISINOPRIL 40 MG TABLET PO SCH (09:00)
[2018-02-26] MEDS: CEFDINIR 250MG/5ML 60ML BOTTLE PO SCH ×2 (09:00→20:29)
[2018-02-26] MEDS: LINAGLIPTIN 5 MG TABLET PO SCH (09:00)
[2018-02-26 09:08] LABS: ALBUMIN 2.7 g/dL (3.5-5.0); BILIRUBIN,TOTAL 0.7 mg/dL (0.2-1.0); CREATININE 0.9 mg/dL (0.5-1.5); MAGNESIUM 2.2 mg/dL (1.80-2.40); POTASSIUM 3.5 mmol/L (3.5-5.1); TOTAL PROTEIN, SERUM 6.5 g/dL (6.0-8.3)
[2018-02-26] MEDS: FAMOTIDINE/PF 20 MG/2 ML VIAL IV SCH (16:12)
[2018-02-26] MEDS: VANCOMYCIN 1GM+NS 250ML 250 ML IV SCH (16:12)
[2018-02-26] MEDS: HYDRALAZINE HCL 20 MG/ML VIAL IV PRN (16:13)
[2018-02-26] MEDS ORDERED: LIDOCAINE HCL 1% 20 ML VIAL ONE (18:42)
[2018-02-26] MEDS ORDERED: PHENYLEPHRINE HCL 10 MG/ML 1ML VIAL IV ONE (18:42)
[2018-02-26] MEDS ORDERED: PROPOFOL 1000 MG/100 ML 100 ML IV ONE (18:43)
[2018-02-26] MEDS: ATORVASTATIN CALCIUM 20 MG TABLET PO SCH (20:29)
[2018-02-27 03:56] LABS: HEMATOCRIT 28.1 % (36-48); MEAN CORPUSCULAR HEMOGLOBIN 25.7 pg (27.0-33.0); MEAN CORPUSCULAR HGB CONC 32.6 g/dL (32.0-36.0); MEAN CORPUSCULAR VOLUME 78.8 fL (79-99); PLATELET COUNT (AUTO) 245 K/uL (130-400); RED BLOOD CELL COUNT(AUTO) 3.57 MIL/uL (4.00-5.50); RED CELL DISTRIBUTION WIDTH 15.2 % (11.0-15.5); WHITE BLOOD COUNT (AUTO) 10.2 K/uL (4.8-10.8)
[2018-02-27 04:15] LABS: ALBUMIN 2.4 g/dL (3.5-5.0); BILIRUBIN,TOTAL 0.5 mg/dL (0.2-1.0); CREATININE 0.8 mg/dL (0.5-1.5); MAGNESIUM 1.6 mg/dL (1.80-2.40); POTASSIUM 3.2 mmol/L (3.5-5.1); TOTAL PROTEIN, SERUM 5.8 g/dL (6.0-8.3)
[2018-02-27] MEDS: ZOSYN 3.375GM+NS 50ML 50 ML IV SCH ×3 (04:51→21:08)
[2018-02-27 05:00] VITALS: BP 189/90
[2018-02-27] MEDS: INSULIN HUMULIN R 100 UNIT/ML 3ML SQ SCH ×5 (06:00→21:00)
[2018-02-27 07:27] VITALS: BP 189/103
[2018-02-27] MEDS: METFORMIN HCL 500 MG TABLET PO SCH ×2 (07:30→16:49)
[2018-02-27] MEDS: SODIUM CHLORIDE 0.9% 1000ML 1,000 ML IV SCH ×2 (07:59→13:50)
[2018-02-27 08:54] VITALS: BP 185/85
[2018-02-27] MEDS: BENZONATATE 100 MG CAPSULE PO SCH ×4 (09:00→21:09)
[2018-02-27] MEDS ORDERED: MAGNESIUM 4GM PREMIX 100ML 100 ML IV SCH (09:00)
[2018-02-27] MEDS: CEFDINIR 250MG/5ML 60ML BOTTLE PO SCH ×2 (09:00→21:00)
[2018-02-27] MEDS ORDERED: CALCIUM GLUCONATE 2 GM in SODIUM CHLORIDE 0.9% 50 ML IV SCH (10:00)
[2018-02-27 11:03] VITALS: BP 196/112
[2018-02-27] MEDS: FAMOTIDINE/PF 20 MG/2 ML VIAL IV SCH (11:20)
[2018-02-27] MEDS: HYDRALAZINE HCL 20 MG/ML VIAL IV PRN (11:21)
[2018-02-27] MEDS: AMLODIPINE BESYLATE 5 MG TAB PO SCH (11:21)
[2018-02-27] MEDS: NITROFURANTOIN MONOHYD/M-CRYST 100 MG CAPSULE PO SCH ×2 (11:21→21:09)
[2018-02-27] MEDS: GLIPIZIDE 5 MG TABLET PO SCH ×2 (11:22→16:49)
[2018-02-27] MEDS: LINAGLIPTIN 5 MG TABLET PO SCH (11:22)
[2018-02-27] MEDS: LISINOPRIL 40 MG TABLET PO SCH (11:22)
[2018-02-27 16:19] VITALS: BP 137/66
[2018-02-27] MEDS: VANCOMYCIN 1GM+NS 250ML 250 ML IV SCH (16:49)
[2018-02-27 19:49] VITALS: BP 144/77
[2018-02-27] MEDS: ATORVASTATIN CALCIUM 20 MG TABLET PO SCH (21:09)
[2018-02-28 00:07] VITALS: BP 167/86
[2018-02-28 04:07] VITALS: BP 154/76
[2018-02-28] MEDS: ZOSYN 3.375GM+NS 50ML 50 ML IV SCH ×2 (05:05→13:00)
[2018-02-28] MEDS: INSULIN HUMULIN R 100 UNIT/ML 3ML SQ SCH ×3 (06:15→16:30)
[2018-02-28 07:00] VITALS: BP 181/87
[2018-02-28] MEDS ORDERED: FUROSEMIDE 40 MG TABLET PO SCH (09:00)
[2018-02-28] MEDS: BENZONATATE 100 MG CAPSULE PO SCH ×2 (09:00→14:00)
[2018-02-28] MEDS: CEFDINIR 250MG/5ML 60ML BOTTLE PO SCH (09:00)
[2018-02-28] MEDS ORDERED: METOPROLOL TARTRATE 50 MG TAB PO SCH ×2 (09:00)
[2018-02-28] MEDS: NITROFURANTOIN MONOHYD/M-CRYST 100 MG CAPSULE PO SCH (09:48)
[2018-02-28] MEDS: LINAGLIPTIN 5 MG TABLET PO SCH (09:48)
[2018-02-28] MEDS: LISINOPRIL 40 MG TABLET PO SCH (09:49)
[2018-02-28] MEDS: AMLODIPINE BESYLATE 5 MG TAB PO SCH (09:49)
[2018-02-28] MEDS: METFORMIN HCL 500 MG TABLET PO SCH ×2 (09:49→16:30)
[2018-02-28] MEDS: GLIPIZIDE 5 MG TABLET PO SCH ×2 (09:49→16:30)
[2018-02-28] MEDS: SODIUM CHLORIDE 0.9% 1000ML 1,000 ML IV SCH ×2 (09:50→16:30)
[2018-02-28 11:00] VITALS: BP 163/77
[2018-02-28] MEDS: VANCOMYCIN 1GM+NS 250ML 250 ML IV SCH (17:00)
[2018-02-28] MEDS: FAMOTIDINE/PF 20 MG/2 ML VIAL IV SCH (17:00)
[2018-04-09] MEDS ORDERED: PANT40TA25 PO (23:19)
== END 2018-02-28 18:00 | disposition home or self-care (01) | DRG 393 ==
LOC: EDH 08:14 → EDHIP 14:14 → 4CH 22:10 → 2AH 02-25 09:46
PROVIDERS: ADMIT Family Medicine; ATTEND Family Medicine
PROC: 0FJB8ZZ Inspection of Hepatobiliary Duct, Via Natural or Artificial Opening Endoscopic (ICD-10-PCS; principal; 2018-02-24)
DX: K55.20 Angiodysplasia of colon without hemorrhage (principal); I50.33 Acute on chronic diastolic (congestive) heart failure; E11.22 Type 2 diabetes mellitus with diabetic chronic kidney disease; C18.9 Malignant neoplasm of colon, unspecified; K80.11 Calculus of gallbladder with chronic cholecystitis with obstruction; D50.9 Iron deficiency anemia, unspecified; E78.5 Hyperlipidemia, unspecified; K80.61 Calculus of gallbladder and bile duct with cholecystitis, unspecified, with obstruction
CPT/HCPCS: 36415; 71045; 74176; 74181; 74230; 76705; 76770; 80048; 80053; 80076; 80202; 81001; 82550; 82553; 82948; 83690; 83735; 83874; 83880; 84132; 84484; 84703; 85025; 85027; 87040; 87088; 87186; 88305; 88312; 90732; 92526; 92610; 92611; 93005; 96361; 96374; 96375; J0360; J0610; J0696; J1170; J1815; J1885; J1940; J2370; J2405; J2543; J2704; J3370; J3475; J3480; J3490; J7030

== ENCOUNTER → 2018-03-28 | Outpatient (CLI) | payer MEDICARE ==
[~2018-03-28] MED LIST changes: -ACET-2247 PO; -ASPI-555 PO; +BENZ200C53 PO; +CEFD300C3 PO; +FURO40TA5 PO; -IBUP-2070 PO; +NITR100C PO; +ONDA4TAB10 PO; +PANT40TA25 PO; +TRAM50TA4 PO
== END | disposition home or self-care (01) ==
LOC: OIH 14:03
PROVIDERS: ATTEND Internal Medicine Gastroenterology
DX: K59.00 Constipation, unspecified (principal)
CPT/HCPCS: 74021

== ENCOUNTER → 2018-04-04 | Outpatient (CLI) | payer MEDICARE ==
[2018-04-04 12:11] LABS: BASOPHILS % (AUTO) 0.7 % (0.0-5.0); EOSINOPHILS % (AUTO) 1.8 % (0.0-8.0); HEMATOCRIT 31.7 % (36-48); LYMPHOCYTES % (AUTO) 14.7 % (21.0-51.0); MEAN CORPUSCULAR HEMOGLOBIN 25.6 pg (27.0-33.0); MEAN CORPUSCULAR HGB CONC 32.5 g/dL (32.0-36.0); MEAN CORPUSCULAR VOLUME 78.7 fL (79-99); MONOCYTES % (AUTO) 7.7 % (3.0-13.0); NEUTROPHILS % (AUTO) 75.1 % (40.0-77.0); PLATELET COUNT (AUTO) 291 K/uL (130-400); RED BLOOD CELL COUNT(AUTO) 4.02 MIL/uL (4.00-5.50); RED CELL DISTRIBUTION WIDTH 15.7 % (11.0-15.5); WHITE BLOOD COUNT (AUTO) 11.2 K/uL (4.8-10.8)
[2018-04-04 13:18] LABS: ERYTHROCYTE SEDIMENTATION RATE 87 MM/HR (0-30)
== END | disposition home or self-care (01) ==
LOC: LAB 11:09
DX: M00.871 Arthritis due to other bacteria, right ankle and foot (principal)
CPT/HCPCS: 36415; 85025; 85651

== ENCOUNTER 2018-11-11 22:47 | Emergency (ER) | payer MEDICARE ==
[~2018-11-11 22:47] MED LIST changes: -AMLO10TA2 PO; +AMLO10TA7 PO; -BENZ200C53 PO; -CEFD300C3 PO; -FURO40TA5 PO; -NITR100C PO; -ONDA4TAB10 PO; -TRAM50TA4 PO
[2018-11-11] MEDS ORDERED: DIATR MEGLU/DIATRIZOATE SODIUM 30 ML BOTTLE ONE (23:25)
== END 2018-11-12 02:31 | disposition home or self-care (01) ==
LOC: EDH 22:47
DX: Z43.1 Encounter for attention to gastrostomy (principal); I10 Essential (primary) hypertension; K21.9 Gastro-esophageal reflux disease without esophagitis; Z88.6 Allergy status to analgesic agent; Z95.1 Presence of aortocoronary bypass graft; E11.9 Type 2 diabetes mellitus without complications
CPT/HCPCS: 43762; 74018; 99284; Q9963